=== PATIENT | female | born 1970 | race American Indian/Alaskan Native ===

== ENCOUNTER 2017-11-11 06:29 | Emergency (ER) | payer MEDICAID ==
[~2017-11-11] VITALS: Ht 160 cm; Wt 61.0 kg
[~2017-11-11 06:29] MED LIST: CHLO25CA10 PO
[2017-11-11] MEDS ORDERED: phenobarbital inj 260 MG in normal saline 100ml IV soln 99 ML IV STA (07:24)
[2017-11-11] MEDS ORDERED: normal saline 1000ML IV soln IVB ONE (07:25)
[2017-11-11] MEDS ORDERED: ondansetron/PF 4mg/2ml inj IV ONE ×2 (07:25→10:25)
[2017-11-11] MEDS ORDERED: thiamine inj. 100 MG in normal saline 100ml IV soln 99 ML IV ONE (07:25)
[2017-11-11] MEDS: magnesium 1gm/100ml D5W IVPB 100 ML IV SCH ×2 (07:47→09:40)
[2017-11-11 08:00] LABS: BASOPHILS # (AUTO) 0.1 X10'3 (0-0.2); BASOPHILS % (AUTO) 1.1 % (0-1); EOSINOPHILS % (AUTO) 0 % (0-6); HEMATOCRIT 41.4 % (35.0-45.0); HEMOGLOBIN 14.3 g/dl (12.0-16.0); LYMPHOCYTES # (AUTO) 1.7 X10'3 (1.1-4.8); LYMPHOCYTES % (AUTO) 21.6 % (21-51); MEAN CORPUSCULAR HEMOGLOBIN 31.8 PG (27.0-31.0); MEAN CORPUSCULAR HGB CONC 34.5 % (33.0-36.5); MEAN CORPUSCULAR VOLUME 92.2 FL (78-98); MEAN PLATELET VOLUME 7.9 FL (7.4-10.4); MONOCYTES # (AUTO) 0.4 X10'3 (0-0.9); MONOCYTES % (AUTO) 4.7 % (2-12); NEUTROPHILS # (AUTO) 5.8 X10'3 (1.8-7.7); NEUTROPHILS % (AUTO) 72.6 % (42-75); PLATELET COUNT 257 X10'3 (140-440); RED BLOOD COUNT 4.49 X10'6 (4.20-5.60); WHITE BLOOD COUNT 7.9 X10'3 (4.5-11.0)
[2017-11-11 08:17] LABS: ALANINE AMINOTRANSFERASE 25 U/L (12-78); ALBUMIN/GLOBULIN RATIO 1.2 (1.1-1.5); ALKALINE PHOSPHATASE 54 IU/L (46-116); ANION GAP 16 (8-16); ASPARTATE AMINO TRANSFERASE 24 U/L (10-37); BILIRUBIN,TOTAL 0.6 MG/DL (0.1-1.0); BLOOD UREA NITROGEN 13 MG/DL (7-18); BUN/CREATININE RATIO 19.4 (6.6-38.0); CALCIUM 8.4 MG/DL (8.5-10.1); CHLORIDE 101 MMOL/L (99-107); CREATININE 0.67 MG/DL (0.40-0.90); ETHANOL 0.133 GM/DL (0.0-0.010); GLUCOSE 106 MG/DL (70-104); MAGNESIUM 1.8 MG/DL (1.5-2.4); POTASSIUM 3.6 MMOL/L (3.5-5.1); SODIUM 142 MMOL/L (135-145); TOTAL PROTEIN 7.3 G/DL (6.4-8.2); eGFR > 90 ML/MIN
[2017-11-11] MEDS ORDERED: metoclopramide 10mg tablet PO ONE (08:25)
[2017-11-11 08:52] VITALS: BP 123/77
[2017-11-11] MEDS ORDERED: ONDA4TAB9 PO (09:44)
== END 2017-11-11 10:53 | disposition home or self-care (01) ==
LOC: ER 06:31
DX: F10.239 Alcohol dependence with withdrawal, unspecified (principal); F10.229 Alcohol dependence with intoxication, unspecified; K29.20 Alcoholic gastritis without bleeding; F41.1 Generalized anxiety disorder; Z88.2 Allergy status to sulfonamides; Z79.899 Other long term (current) drug therapy
CPT/HCPCS: 36415; 80053; 80320; 82948; 83735; 85025; 93005; 96365; 96366; 96368; 96375; 96376; 99285; J2405; J2560; J3411; J7030; J8597

== ENCOUNTER 2020-01-04 08:03 | Emergency (ER) | payer MEDICAID ==
[~2020-01-04] VITALS: Ht 160 cm; Wt 59.1 kg
[2020-01-04 08:40] LABS: BASOPHILS % (AUTO) 0.2 % (0-1); EOSINOPHILS % (AUTO) 0.1 % (0-6); HEMATOCRIT 41.7 % (35.0-45.0); HEMOGLOBIN 13.9 g/dl (12.0-16.0); LYMPHOCYTES % (AUTO) 16.2 % (21-51); MEAN CORPUSCULAR HEMOGLOBIN 30.6 PG (27.0-31.0); MEAN CORPUSCULAR HGB CONC 33.3 g/dL (33.0-36.5); MEAN CORPUSCULAR VOLUME 91.9 FL (78-98); MEAN PLATELET VOLUME 8.1 FL (7.4-10.4); MONOCYTES # (AUTO) 0.5 X10'3 (0-0.9); MONOCYTES % (AUTO) 7.9 % (2-12); NEUTROPHILS # (AUTO) 4.7 X10'3 (1.8-7.7); NEUTROPHILS % (AUTO) 75.6 % (42-75); PLATELET COUNT 237 X10'3 (140-440); RED BLOOD COUNT 4.54 X10'6 (4.20-5.60); RED CELL DISTRIBUTION WIDTH 13.3 % (11.5-14.5); WHITE BLOOD COUNT 6.3 X10'3 (4.5-11.0)
[2020-01-04] MEDS ORDERED: famotidine/PF 10 mg/ml inj IV ONE (08:40)
[2020-01-04] MEDS ORDERED: ondansetron/PF 4mg/2ml inj IV ONE ×2 (08:40→10:00)
[2020-01-04 08:57] LABS: ALANINE AMINOTRANSFERASE 39 U/L (12-78); ALBUMIN 3.9 G/DL (3.4-5.0); ALBUMIN/GLOBULIN RATIO 1.3 (1.1-1.5); ALKALINE PHOSPHATASE 63 IU/L (46-116); ANION GAP 6 (8-16); ASPARTATE AMINO TRANSFERASE 43 U/L (10-37); BILIRUBIN,TOTAL 0.3 MG/DL (0.1-1.0); BLOOD UREA NITROGEN 15 MG/DL (7-18); BUN/CREATININE RATIO 21.1 (6.6-38.0); CALCIUM 8.4 MG/DL (8.5-10.1); CHLORIDE 106 MMOL/L (99-107); CREATININE 0.71 MG/DL (0.40-0.90); GLUCOSE 128 MG/DL (70-104); LIPASE 140 U/L (73-393); POTASSIUM 3.8 MMOL/L (3.5-5.1); SODIUM 144 MMOL/L (135-145); TOTAL CARBON DIOXIDE 31.9 MMOL/L (24-32); eGFR 87 ML/MIN
[2020-01-04] MEDS: dextrose 5%-normal saline 1,000 ML IV SCH ×4 (09:02→11:36)
[2020-01-04 10:00] VITALS: BP 129/95
[2020-01-04] MEDS ORDERED: LORazepam 2 mg/ml vial IV ONE (10:30)
== END 2020-01-04 11:48 | disposition home or self-care (01) ==
LOC: ER 08:03
DX: F10.10 Alcohol abuse, uncomplicated (principal); R11.2 Nausea with vomiting, unspecified; R10.13 Epigastric pain; F41.9 Anxiety disorder, unspecified; F32.9 Major depressive disorder, single episode, unspecified; Z88.2 Allergy status to sulfonamides; Z79.899 Other long term (current) drug therapy; Y90.0 Blood alcohol level of less than 20 mg/100 ml
CPT/HCPCS: 36415; 80053; 83690; 85025; 96361; 96374; 96375; 96376; 99284; J2060; J2405; J3490; J7042

== ENCOUNTER 2020-08-23 06:14 | Emergency (ER) | payer MEDICAID ==
[~2020-08-23] VITALS: Ht 160 cm; Wt 64.0 kg
[2020-08-23] MEDS ORDERED: pantoprazole 40 MG vial IV ONE (10:25)
[2020-08-23] MEDS ORDERED: normal saline 1000ML IV soln IVB ONE ×2 (10:25)
[2020-08-23] MEDS ORDERED: proCHLORperazine 10 MG/2 ml inj IV ONE (10:25)
[2020-08-23] MEDS ORDERED: LORazepam 2 mg/ml vial IV ONE (10:25)
[2020-08-23 11:15] VITALS: BP 121/74
[2020-08-23 11:54] LABS: BASOPHILS % (AUTO) 0.5 % (0-1); EOSINOPHILS % (AUTO) 0.1 % (0-6); HEMATOCRIT 39.5 % (35.0-45.0); HEMOGLOBIN 13.4 g/dl (12.0-16.0); LYMPHOCYTES # (AUTO) 0.9 X10'3 (1.1-4.8); LYMPHOCYTES % (AUTO) 14.6 % (21-51); MEAN CORPUSCULAR HEMOGLOBIN 31.8 PG (27.0-31.0); MEAN CORPUSCULAR VOLUME 93.7 FL (78-98); MEAN PLATELET VOLUME 8.5 FL (7.4-10.4); MONOCYTES # (AUTO) 0.5 X10'3 (0-0.9); MONOCYTES % (AUTO) 7.3 % (2-12); NEUTROPHILS % (AUTO) 77.5 % (42-75); PLATELET COUNT 194 X10'3 (140-440); RED BLOOD COUNT 4.21 X10'6 (4.20-5.60); RED CELL DISTRIBUTION WIDTH 12.9 % (11.5-14.5); WHITE BLOOD COUNT 6.4 X10'3 (4.5-11.0)
[2020-08-23 12:20] LABS: ALANINE AMINOTRANSFERASE 40 U/L (12-78); ALBUMIN/GLOBULIN RATIO 1.4 (1.1-1.5); ALKALINE PHOSPHATASE 60 IU/L (46-116); ANION GAP 10 (8-16); ASPARTATE AMINO TRANSFERASE 36 U/L (10-37); BLOOD UREA NITROGEN 16 MG/DL (7-18); BUN/CREATININE RATIO 31.4 (6.6-38.0); CHLORIDE 102 MMOL/L (99-107); CREATININE 0.51 MG/DL (0.40-0.90); GLUCOSE 108 MG/DL (70-104); LIPASE 60 U/L (73-393); POTASSIUM 3.4 MMOL/L (3.5-5.1); SODIUM 140 MMOL/L (135-145); TOTAL CARBON DIOXIDE 27.6 MMOL/L (24-32); TOTAL PROTEIN 6.9 G/DL (6.4-8.2); eGFR > 90 ML/MIN
[2020-08-23] MEDS ORDERED: PROC25SU31 RC (12:53)
[2020-08-23] MEDS ORDERED: PANT-47 PO (12:53)
== END 2020-08-23 13:32 | disposition home or self-care (01) ==
LOC: ER 06:15
DX: F10.230 Alcohol dependence with withdrawal, uncomplicated (principal); R10.13 Epigastric pain; R11.2 Nausea with vomiting, unspecified; F41.9 Anxiety disorder, unspecified; F32.9 Major depressive disorder, single episode, unspecified; Z72.89 Other problems related to lifestyle; Z88.2 Allergy status to sulfonamides; Z88.1 Allergy status to other antibiotic agents; Z88.8 Allergy status to other drugs, medicaments and biological substances; Z79.899 Other long term (current) drug therapy; Y90.9 Presence of alcohol in blood, level not specified
CPT/HCPCS: 36415; 80053; 83690; 85025; 85610; 96361; 96374; 96375; 99284; C9113; J0780; J2060; J7030

== ENCOUNTER 2021-03-02 09:05 | Emergency (ER) | payer MEDICAID ==
[~2021-03-02] VITALS: Ht 160 cm; Wt 59.1 kg
[~2021-03-02 09:05] MED LIST changes: +PANT-47 PO
[2021-03-02] MEDS ORDERED: hyDROXYzine 50 mg/ml injection ***IM only IM ONE (09:25)
[2021-03-02 09:37] VITALS: BP 128/99
== END 2021-03-02 10:05 | disposition home or self-care (01) ==
LOC: ER 09:06
DX: F41.9 Anxiety disorder, unspecified (principal); F10.129 Alcohol abuse with intoxication, unspecified; Y90.9 Presence of alcohol in blood, level not specified; F32.9 Major depressive disorder, single episode, unspecified; Z88.8 Allergy status to other drugs, medicaments and biological substances; Z79.899 Other long term (current) drug therapy; Z88.2 Allergy status to sulfonamides
CPT/HCPCS: 96372; 99283; J3410

== ENCOUNTER 2021-05-02 12:34 | Emergency (ER) | payer MEDICAID ==
[~2021-05-02] VITALS: Ht 170.2 cm; Wt 65.9 kg
[2021-05-02] MEDS ORDERED: LORazepam 2 mg/ml vial IM ONE (13:05)
[2021-05-02] MEDS ORDERED: normal saline 1000ML IV soln IVB ONE (13:05)
[2021-05-02 13:55] LABS: BASOPHILS % (AUTO) 0.4 % (0-1); EOSINOPHILS % (AUTO) 0 % (0-6); HEMATOCRIT 45.4 % (35.0-45.0); HEMOGLOBIN 15.6 g/dl (12.0-16.0); LYMPHOCYTES # (AUTO) 1.8 X10'3 (1.1-4.8); LYMPHOCYTES % (AUTO) 25.4 % (21-51); MEAN CORPUSCULAR HEMOGLOBIN 31.8 PG (27.0-31.0); MEAN CORPUSCULAR HGB CONC 34.3 g/dL (33.0-36.5); MEAN CORPUSCULAR VOLUME 92.9 FL (78-98); MEAN PLATELET VOLUME 8.2 FL (7.4-10.4); MONOCYTES # (AUTO) 0.4 X10'3 (0-0.9); MONOCYTES % (AUTO) 5.5 % (2-12); NEUTROPHILS # (AUTO) 4.9 X10'3 (1.8-7.7); NEUTROPHILS % (AUTO) 68.7 % (42-75); PLATELET COUNT 302 X10'3 (140-440); RED BLOOD COUNT 4.89 X10'6 (4.20-5.60); RED CELL DISTRIBUTION WIDTH 13.4 % (11.5-14.5); WHITE BLOOD COUNT 7.2 X10'3 (4.5-11.0)
[2021-05-02 14:08] LABS: ALANINE AMINOTRANSFERASE 55 U/L (12-78); ALBUMIN 4.7 G/DL (3.4-5.0); ALBUMIN/GLOBULIN RATIO 1.5 (1.1-1.5); ALKALINE PHOSPHATASE 73 IU/L (46-116); ANION GAP 9 (8-16); ASPARTATE AMINO TRANSFERASE 39 U/L (10-37); BILIRUBIN,TOTAL 1.1 MG/DL (0.1-1.0); BLOOD UREA NITROGEN 14 MG/DL (7-18); BUN/CREATININE RATIO 20.9 (6.6-38.0); CHLORIDE 101 MMOL/L (99-107); CREATININE 0.67 MG/DL (0.40-0.90); ETHANOL 0.282 GM/DL (0.0-0.010); GLUCOSE 124 MG/DL (70-104); MAGNESIUM 2.2 MG/DL (1.5-2.4); POTASSIUM 3.9 MMOL/L (3.5-5.1); SODIUM 140 MMOL/L (135-145); TOTAL CARBON DIOXIDE 30.4 MMOL/L (24-32); TOTAL PROTEIN 7.8 G/DL (6.4-8.2); eGFR > 90 ML/MIN
[2021-05-02] MEDS ORDERED: normal saline 1000ml 1,000 ML IV ONE ×2 (23:35)
[2021-05-02] MEDS ORDERED: LORazepam 2 mg/ml vial IV ONE (23:35)
[2021-05-02] MEDS ORDERED: thiamine 100mg/ml 2ml inj. IV ONE (23:40)
[2021-05-02] MEDS ORDERED: folic acid 1mg/0.2ml inj IV ONE (23:40)
[2021-05-03] MEDS ORDERED: LORazepam 2 mg/ml vial IV ONE (00:35)
--- NOTE | 2021-05-03 03:19 | NUR ---
Daughter Radha contacted and notified mother was being discharged.
[2021-05-03] MEDS ORDERED: CHLO25CA10 PO (04:04)
== END 2021-05-03 04:32 | disposition home or self-care (01) ==
LOC: ER 12:35
DX: F10.239 Alcohol dependence with withdrawal, unspecified (principal); F41.9 Anxiety disorder, unspecified; F32.9 Major depressive disorder, single episode, unspecified; Z88.2 Allergy status to sulfonamides; Z88.8 Allergy status to other drugs, medicaments and biological substances; Z79.899 Other long term (current) drug therapy; Y90.9 Presence of alcohol in blood, level not specified
CPT/HCPCS: 36415; 80053; 80320; 82948; 83735; 85025; 93005; 96361; 96372; 96374; 96375; 99284; J2060; J3411; J3490; J7030

== ENCOUNTER 2024-03-29 17:56 | Emergency (ER) | payer MEDICAID ==
[~2024-03-29] VITALS: Ht 160 cm; Wt 59.1 kg
[2024-03-29 18:18] VITALS: BP 147/91; PULSE 100; RESP 18; TEMP 97.8; O2SAT 97
== END 2024-03-29 20:16 | disposition left against medical advice (07) ==
LOC: ER 17:56
DX: S69.81XA Other specified injuries of right wrist, hand and finger(s), initial encounter (principal); F10.129 Alcohol abuse with intoxication, unspecified; Z53.21 Procedure and treatment not carried out due to patient leaving prior to being seen by health care provider; Y08.89XA Assault by other specified means, initial encounter; Y93.89 Activity, other specified; Y92.89 Other specified places as the place of occurrence of the external cause; Y99.8 Other external cause status